=== PATIENT | female | born 2000 | race Hispanic/Latino ===

== ENCOUNTER 2024-06-10 18:56 | Emergency (ER) | payer OTHER, SELFPAY ==
[2024-06-10 19:03] VITALS: BP 127/83
--- NOTE | 2024-06-10 19:36 | ED.GENMED ---
History of Present Illness
General
Chief Complaint: Rabies
Source: patient
Exam Limitations: none
Time Seen by Provider: 06/10/24 19:13
Nursing documentation reviewed up to this point in time: agreed with
History of Present Illness
History of Present Illness:
Patient is a 23-year-old female presenting to the emergency department from urgent care for evaluation of a dog bite on right hand. Patient states that about 1 hour ago her mothers dog bit her in the right hand. She was seen in urgent care
facility where they glued laceration. They did update her tetanus vaccine. Given patient's mom's dog is not vaccinated�they did send patient to the emergency department for rabies vaccine.
Patient does have some mild pain on her right dorsal hand between her second and third left spaces.
Of note- Patient's mother's dog is not vaccinated. The dog is about 3 years old and the dog was previously living at their friend's house. The dog has never been a stray. No known rabies exposure.
Past History
Past History
ED Past Medical History: Asthma and Other (miscarriage)
ED Past Surgical History: None
Social History
Tobacco: Former smoker
Alcohol: Occasional
Drug: Marijuana
Personal: Single
Living: with family
Employment: Employed
Family History
Family History: Other (Noncontributory)
Review of Systems
Review of Systems
Allergies reviewed?: Yes
All Other Systems: ROS reviewed and negative except as documented in HPI and ROS
Phy Exam
Physical Exam
Physical Exam:
Vitals: Patient's vital signs are stable. Afebrile
General: Patient is well appearing, no acute distress. Nontoxic-appearing
Skin: Small 1 cm linear laceration right thenar eminence closed with Dermabond. Small puncture wound of right dorsal hand not actively bleeding.
Head: Normocephalic, atraumatic
Eyes: Sclera nonicteric. EOMs intact. No nystagmus.
Throat: Protecting airway
Neck: Normal ROM, no cervical spine tenderness, no meningismus
Cardiac: Regular rate and rhythm, no murmurs.
Pulm: Normal respiratory effort, no wheezes, rales, rhonchi heard on exam.
Abdomen: No abdominal tenderness.
Extremities: Small puncture wound to right dorsal hand along with small linear puncture laceration to right thenar eminence closed with Dermabond. Mild ecchymoses to right dorsal hand between second and third digit. No bony tenderness. Patient
has excellent range of motion in right hand and right digits against resistance. Sensation fully intact in right hand. Great capillary refill right hand.
Neuro: AAOx3. CN II-XII intact. No focal neurologic deficits.
Psychiatric: Normal affect.
Course
Orders/Labs/Results
Orders:
Orders
06/10/24 19:32
Ibuprofen [Motrin] 400 mg PO NOW STA
06/10/24 20:07
Amoxicillin 875 mg/Clav 125 mg [Augmentin 875 mg/125 mg] 1 tablet PO NOW STA
Vital Signs
Initial and Last Documented VS:
Initial Vital Signs
Temp Pulse Resp BP Pulse Ox
98.2 F 67 18 127/83 98
06/10/24 19:03 06/10/24 19:03 06/10/24 19:03 06/10/24 19:03 06/10/24 19:03
Last Documented Vital Signs
Temp Pulse Resp BP Pulse Ox
98.2 F 67 16 125/81 98
06/10/24 19:03 06/10/24 20:09 06/10/24 20:09 06/10/24 20:09 06/10/24 20:09
MDM/Problems Addressed
Differential Diagnosis Includes:
Not limited to: Dog bite, cellulitis, human
MDM/Problems Addressed:
Patient is a 23-year-old female presenting from urgent care for evaluation of dog bite. Reports bit by her mom's domesticated dog about an hour ago. Dog is unvaccinated. Patient was seen in urgent care where laceration on right palm was closed
with Dermabond. Sent to emergency department for possible rabies vaccination series. Vital signs are stable on arrival, patient is afebrile. Physical exam as above. Small laceration of right thenar eminence has been closed with Dermabond without
any active bleeding. There is a small puncture wound to right dorsal hand between second and third digit without any active bleeding. Mild ecchymoses noted to right dorsal hand. Patient has excellent range of motion and strength in right hand.
No evidence of foreign body or tendon involvement.
Lengthy discussion with patient and patient's mom. Dog has always been a home pet never been a stray. Given dog lives with patient and her mom and can be continually monitored for any abnormal signs did utilize shared decision making with patient
and patient's mom regarding proceeding with rabies vaccination series versus monitoring animal at home. Patient would like to avoid rabies vaccination series at this time if it is not necessary. I do feel this is reasonable given circumstance.
They will monitor their dog very closely at home and return with any concerns.
Wound on right dorsal hand was irrigated with normal saline, apply antibiotic ointment and Band-Aid. It is somewhat uncertain if urgent care did start patient on oral antibiotics. I gave patient first dose of Augmentin while in emergency
department. I did send a course of Augmentin and instructed patient to take this twice a day for 5 days. Patient will monitor wounds very closely for signs of infection. Patient did receive tetanus shot at urgent care. Otherwise�patient stable
for discharge. Case discussed with attending physician.
Chronic conditions affecting care:
N/A
Acute Exacerbation and/or Progression of Chronic Illness:
N/A
*Pulse Oximetry
Patient hypoxic: no
*EKG
Interpreted by ED Provider?: NA
*Lap Winder Interpretation
Rate: Lap Winder- N/A
*Critical Care Note
Total Time (30-74mins, 75-104mins- exclusive of procedures): Not Applicable
ED Attending Note
-
Portions of this chart may have been created with voice recognition software.� Occasional wrong word or��sound alike� substitutions may have occurred due to the inherent limitations of voice recognition software.
Discharge Plan
Departure
Patient Disposition: Home (Routine Discharge)
Date of Disposition: 06/10/24
Time of Disposition: 20:09
Patient with high blood pressure during this ER visit?: No
Condition: Good
Covid-19: Not Applicable
Discharge Problem:
Dog bite of right hand
Instructions: Animal Bites (DC)
Prescriptions:
New
amoxicillin-pot clavulanate 875-125 mg tablet
1 tab PO BID 5 Days Qty: 10 0RF
Activity Restrictions/Additional Instructions:
RETURN TO THE EMERGENCY DEPARTMENT WITH ANY FEVERS, CHILLS, ANY SIGNS OF INFECTION INCLUDING SIGNIFICANT REDNESS,SWELLING, PUS DRAINING FROM WOUND, RED STREAKING SURROUNDING WOUND, WORSENING IN CURRENT SYMPTOMS, OR ANY OTHER CONCERNS
-Your prescription for antibiotics have been sent to the pharmacy. You received your first dose in the emergency department tonight and you can resume this antibiotic tomorrow.
-As discussed�it is very important that you keep close monitoring of your dog at home and return to the emergency department if dog starts displaying any abnormal behaviors or concern for possible rabies exposure.
Monitor your symptoms closely return to the emergency department any acute worsening/new symptoms
Interventions
Interventions:
*Risk Screen - Suicide Last Done: 06/10/24 19:01
*General Assessment Last Done: 06/10/24 19:01
*Neglect/Abuse Screening Last Done: 06/10/24 19:01
ED- Fall Risk Assessment Last Done: 06/10/24 20:09
*ED COVID-19 Vaccine History Last Done: 06/10/24 19:01
*Nursing Disposition Last Done: 06/10/24 20:13
Discharge Date and Time
Discharge Date/Time: 06/10/24 20:16
Print Language: [id number]
[2024-06-10] MEDS: MOTRIN 400 MG PO (19:40)
[2024-06-10 20:09] VITALS: BP 125/81
[2024-06-10] MEDS: AUGMENTIN 875 MG/125 MG 1 TABLET PO (20:12)
== END 2024-06-10 20:16 | disposition home or self-care (01) ==
LOC: EMR 18:56
PROVIDERS: EMERGENCY PHYSICIAN Emergency Medicine; FAMILY PHYSICIAN Family Medicine
DX: S61.451A Open bite of right hand, initial encounter (principal); S61.431A Puncture wound without foreign body of right hand, initial encounter; S60.221A Contusion of right hand, initial encounter; W54.0XXA Bitten by dog, initial encounter; J45.909 Unspecified asthma, uncomplicated; R01.1 Cardiac murmur, unspecified; F41.9 Anxiety disorder, unspecified; F32.A Depression, unspecified; Z87.891 Personal history of nicotine dependence
CPT/HCPCS: 99283